=== PATIENT | male | born 1995 ===

== ENCOUNTER 2017-12-25 00:29 | Emergency (ER) | payer OTHER ==
[2017-12-25 00:35] VITALS: RESP 18; TEMP 97.8
[2017-12-25] MEDS ORDERED: LIDOCAINE HCL 2% MPF 10 ML SOL SC ONE (00:42)
[2017-12-25] MEDS ORDERED: LIDOCAINE HCL 2% MPF 10 ML SOL ONE (00:42)
[2017-12-25] MEDS ORDERED: TDAP VACCINE 0.5 ML SUS IM ONE (00:42)
[2017-12-25 00:50] VITALS: PULSE 88
[2017-12-25] MEDS ORDERED: BACITRACIN 500 U/GM OIN TOP ONE ×2 (01:12→01:13)
[2017-12-25 01:53] VITALS: BP 110/64; O2SAT 100
== END 2017-12-25 01:17 | disposition home or self-care (01) | DRG 605 ==
LOC: ED 00:29
DX: S61.412A Laceration without foreign body of left hand, initial encounter (principal); W26.0XXA Contact with knife, initial encounter
CPT/HCPCS: 12001; 99284; A9270-GY